=== PATIENT | male | born 1975 | race Caucasian/White ===

== ENCOUNTER 2018-02-14 09:27 | Observation (INO) ==
--- NOTE | 2018-02-14 10:28 | Emergency Department Note ---
Disposition Clinical Impression: Atypical chest pain Disposition: Admitted As Inpatient Condition: Fair Chest Pain HPI - General Chief Complaint: ED Chest Pain Stated Complaint: CP Time Seen by Provider: 02/14/18 09:29 Source: patient Mode of arrival: ambulatory Limitations: no limitations Vital Signs Reviewed: Yes Nursing Notes Reviewed: Yes - History of Present Illness HPI Narrative: Luc Chaney is a 42-yo male patient with PMHx of HTN, HLD, GERD, hiatal hernia , FHx of VT in both parents in their 60s, and no smoking other substance use history. His chief complaint is multiple episodes of shortness of breath, nausea , and profuse diaphoresis. He describes these as sudden onset and exertional, and lasting for about 10 minutes. He admits to some cough productive of yellow mucus but no blood, and denies any chest pain, tearing sensation through to his back, hemoptysis, leg pain, recent trauma or surgery, and history of blood clots or hormone use. He does complain of epigastric discomfort and bloating that he describes as typical for him, as well as upper back and left shoulder and arm discomfort/paresthesia and mild weakness that are chronic and unchanged. He has no other complaints at this time. Onset (ago): day(s) (1) Duration: intermittent Onset: during exertion Pain Location: other Severity: mild Severity scale (1-10): 1 Quality: tightness Pain Radiation: LUE Improves with: nothing Worsens with: movement Associated symptoms: Reports: nausea, diaphoresis, dyspnea, cough Treatments prior to arrival chest pain: none - Related Data On Oral Contraceptives: No Home Medications Medication Instructions Recorded Confirmed Esomeprazole Magnesium [Nexium 40 mg PO QAM 05/16/17 02/14/18 24Hr] Sertraline [Zoloft] 50 mg PO DAILY 05/16/17 02/14/18 Atorvastatin [Lipitor] 10 mg PO HS 02/14/18 02/14/18 L. Acidophilus/Pectin, [place] 1 cap PO DAILY 02/14/18 02/14/18 [Acidophilus Probiotic Capsule] Lisinopril [Zestril] 10 mg PO DAILY 02/14/18 02/14/18 Allergies Allergy/AdvReac Type Severity Reaction Status Date / Time Amoxicillin AdvReac Nausea Verified 02/14/18 10:27 Constitutional: Denies: fever, chills, weakness, night sweats Cardiovascular: Reports: dyspnea on exertion. Denies: chest pain, palpitations , orthopnea, edema, syncope Respiratory: Reports: cough, dyspnea, sputum production. Denies: wheezes, hemoptysis, stridor Gastrointestinal: Reports: nausea, other (mild epigastric discomfort). Denies: vomiting, diarrhea, constipation, hematemesis Musculoskeletal: Reports: back pain (discomfort, upper) Neurological: Reports: headache, paresthesias (left arm) Chest Pain PMH - Past Medical History Medical history: Reports: GERD, hyperlipidemia, hypertension, other (hiatal hernia) Surgical history: Reports: non-contributory Psychiatric history: Reports: anxiety - Social History Smoking Status: Never smoker Alcohol use: Reports: none Drug use: Reports: none Physical Exam On exam, patient is alert, oriented, and in no acute distress. He is mildly diaphoretic, but skin has normal color. Heart has RRR and lungs are CTAB. His upper back and shoulders have mildly increased discomfort to palpation or range of motion, but chest is nontender. Abdomen is soft and distended with mild epigastric pain to palpation. There is no swelling or tenderness in the bilateral lower extremities. No other pertinent findings. - General Limitations: no limitations General appearance: alert, in no apparent distress - Head Head exam: atraumatic, normocephalic - Eye Eye exam: Present: normal appearance - Neck Neck exam: Present: normal inspection - Chest Chest inspection: Present: normal inspection, symmetric chest wall rise. Absent : tenderness - Respiratory Respiratory exam: Present: normal lung sounds bilaterally. Absent: respiratory distress, wheezes, accessory muscle use - Cardiovascular Cardiovascular exam: Present: regular rate, normal rhythm. Absent: systolic murmur, diastolic murmur, rubs, gallop - Abdominal Exam Abdominal exam: Present: soft, tenderness, distention, normal bowel sounds. Absent: guarding, rebound, rigidity Abdominal tenderness: Present: epigastrium, mild - Back Exam Back exam: Present: normal inspection, full ROM. Absent: tenderness - Neurological Exam Neurological exam: Present: alert, oriented X3 - Psychiatric Psychiatric exam: Present: normal affect, normal mood - Skin Skin exam: Present: normal color, diaphoresis Course Course Narrative: 42 YO M here with CP that is experiencing dyspnea, diaphoresis, exertional chest pain that is constant pain that shoots to his right arm and shoulder. Concerned for ACS based on presenting symptoms. Repeated EKG showed sinus rythym , normal intervals, normal axis. Called hospitalist for workup for ACS. - Reevaluation(s) Reevaluation #1: Spoke with hospitalist and they will admit him for workup. - Consultations Consultation #1: Spoke with hospitalist and he's okay to admit him. Vital Signs Temperature 98.0 F 02/14/18 09:37 Pulse Rate 99 02/14/18 09:37 Respiratory Rate 16 02/14/18 09:37 Blood Pressure 150/86 02/14/18 09:37 O2 Sat by Pulse Oximetry 98 02/14/18 09:37 Temperature 98.1 F 02/14/18 15:34 Pulse Rate 81 02/14/18 15:34 Respiratory Rate 20 02/14/18 15:34 Blood Pressure 136/87 02/14/18 15:34 O2 Sat by Pulse Oximetry 96 02/14/18 15:34 Oxygen Delivery Oxygen Delivery Room Air Chest Pain - Lab Data Result diagrams: 02/14/18 10:09 02/14/18 10:09 Lab Results 02/14/18 02/14/18 Range/Units 10:09 10:09 WBC 4.7 (4.3-11.1) K/mcL RBC 4.83 (4.19-5.50) M/mcL Hgb 14.2 (12.9-16.9) g/dL Hct 40.6 (37.5-50.1) % MCV 84.1 (83.0-100.0) fL MCH 29.4 (28.0-33.3) pg MCHC 35.0 (31.6-35.5) g/dL RDW 13.1 (11.5-14.5) % Plt Count 199 (140-400) K/mcL MPV 9.4 (9.4-12.4) fL Immature Gran % 0.2 (0-4) % Seg Neutrophils % 64.6 % Lymphocytes % 21.2 % Monocytes % 11.3 % Eosinophils % 2.1 % Basophils % 0.6 % Neutrophils # 3.0 (1.6-8.9) K/mcL Lymphocytes # 1.0 (0.6-4.6) K/mcL Monocytes # 0.5 (0.0-1.3) K/mcL Eosinophils # 0.1 (0.0-0.6) K/mcL Basophils # 0.0 (0.0-0.2) K/mcL Sodium 136 (136-145) mEq/L Potassium 3.8 (3.5-5.1) mEq/L Chloride 102 (98-107) mEq/L Carbon Dioxide 26 (23-29) mEq/L BUN 16 (6-20) mg/dL Creatinine 0.99 (0.70-1.30) mg/dL Est GFR ( Amer) > 60 (> 60) Est GFR (Non-Af Amer) > 60 (> 60) BUN/Creatinine Ratio 16 (6-26) Glucose 103 (70-105) mg/dL Calculated Osmolality 283 (280-300) Calcium 9.8 (8.6-10.3) mg/dL Troponin I < 0.03 (< 0.04) ng/mL - EKG Data EKG shows normal: sinus rhythm, axis Rate: normal Rhythm: NSR [place]/QRS: normal Interpretation: normal EKG
[2018-02-14 10:34] LABS: Basophils % 0.6 %; Eosinophils # 0.1 K/mcL (0.0-0.6); Eosinophils % 2.1 %; Hematocrit 40.6 % (37.5-50.1); Hemoglobin 14.2 g/dL (12.9-16.9); Immature Granulocytes % 0.2 % (0-4); Lymphocytes % 21.2 %; Mean Corpuscular Hemoglobin 29.4 pg (28.0-33.3); Mean Corpuscular Volume 84.1 fL (83.0-100.0); Mean Platelet Volume 9.4 fL (9.4-12.4); Monocytes # 0.5 K/mcL (0.0-1.3); Monocytes % 11.3 %; Platelet Count 199 K/mcL (140-400); Red Blood Count 4.83 M/mcL (4.19-5.50); Red Cell Distribution Width 13.1 % (11.5-14.5); Segmented Neutrophils % 64.6 %
--- NOTE | 2018-02-14 10:48 | Emergency Department Note ---
Disposition Clinical Impression: Atypical chest pain Disposition: Admitted As Inpatient Condition: Fair General Adult HPI - General Chief complaint: ED Chest Pain Stated complaint: CP Time Seen by Provider: 02/14/18 09:29 Source: patient Mode of arrival: ambulatory Limitations: no limitations - History of Present Illness Pain Scale: 1 - Related Data Home Medications Medication Instructions Recorded Confirmed Esomeprazole Magnesium [Nexium 40 mg PO QAM 05/16/17 02/14/18 24Hr] Sertraline [Zoloft] 50 mg PO DAILY 05/16/17 02/14/18 Atorvastatin [Lipitor] 10 mg PO HS 02/14/18 02/14/18 L. Acidophilus/Pectin, [place] 1 cap PO DAILY 02/14/18 02/14/18 [Acidophilus Probiotic Capsule] Lisinopril [Zestril] 10 mg PO DAILY 02/14/18 02/14/18 Allergies Allergy/AdvReac Type Severity Reaction Status Date / Time Amoxicillin AdvReac Nausea Verified 02/14/18 10:27 Constitutional: Denies: fever, chills, weakness, night sweats Cardiovascular: Reports: dyspnea on exertion. Denies: chest pain, palpitations , orthopnea, edema, syncope Respiratory: Reports: cough, dyspnea, sputum production. Denies: wheezes, hemoptysis, stridor Gastrointestinal: Reports: nausea, other (mild epigastric discomfort). Denies: vomiting, diarrhea, constipation, hematemesis Musculoskeletal: Reports: back pain (discomfort, upper) Neurological: Reports: headache, paresthesias (left arm) Past Medical History - Past Medical History Medical history: Reports: GERD, hyperlipidemia, hypertension, other (hiatal hernia) Surgical history: Reports: non-contributory Psychiatric history: Reports: anxiety - Social History Smoking Status: Never smoker Smokeless Tobacco Status: No Alcohol use: Reports: none Drug use: Reports: none Physical Exam - General Limitations: no limitations General appearance: alert, in no apparent distress Course Vital Signs Temperature 98.0 F 02/14/18 09:37 Pulse Rate 99 02/14/18 09:37 Respiratory Rate 16 02/14/18 09:37 Blood Pressure 150/86 02/14/18 09:37 O2 Sat by Pulse Oximetry 98 02/14/18 09:37 Temperature 98.1 F 02/14/18 15:34 Pulse Rate 81 09/13/18 15:34 Respiratory Rate 20 02/14/18 15:34 Blood Pressure 136/87 02/14/18 15:34 O2 Sat by Pulse Oximetry 96 02/14/18 15:34 Oxygen Delivery Oxygen Delivery Room Air Medical Decision Making - Lab Data Result diagrams: 02/14/18 10:09 02/14/18 10:09 Lab Results 02/14/18 02/14/18 Range/Units 10:09 10:09 WBC 4.7 (4.3-11.1) K/mcL RBC 4.83 (4.19-5.50) M/mcL Hgb 14.2 (12.9-16.9) g/dL Hct 40.6 (37.5-50.1) % MCV 84.1 (83.0-100.0) fL MCH 29.4 (28.0-33.3) pg MCHC 35.0 (31.6-35.5) g/dL RDW 13.1 (11.5-14.5) % Plt Count 199 (140-400) K/mcL MPV 9.4 (9.4-12.4) fL Immature Gran % 0.2 (0-4) % Seg Neutrophils % 64.6 % Lymphocytes % 21.2 % Monocytes % 11.3 % Eosinophils % 2.1 % Basophils % 0.6 % Neutrophils # 3.0 (1.6-8.9) K/mcL Lymphocytes # 1.0 (0.6-4.6) K/mcL Monocytes # 0.5 (0.0-1.3) K/mcL Eosinophils # 0.1 (0.0-0.6) K/mcL Basophils # 0.0 (0.0-0.2) K/mcL Sodium 136 (136-145) mEq/L Potassium 3.8 (3.5-5.1) mEq/L Chloride 102 (98-107) mEq/L Carbon Dioxide 26 (23-29) mEq/L BUN 16 (6-20) mg/dL Creatinine 0.99 (0.70-1.30) mg/dL Est GFR ( Amer) > 60 (> 60) Est GFR (Non-Af Amer) > 60 (> 60) BUN/Creatinine Ratio 16 (6-26) Glucose 103 (70-105) mg/dL Calculated Osmolality 283 (280-300) Calcium 9.8 (8.6-10.3) mg/dL Troponin I < 0.03 (< 0.04) ng/mL Attestation Statement - Attestation Attestation: I examined this patient and my medical decision-making was reviewed with the FRAME CATCHER/PA/Advanced Practice Nurse/Resident Physician. I agree with the documented findings, disposition and treatment plan as described except to the extent set forth below. Presents with exertional dyspnea and diaphoresis for the last several days with discomfort in the left shoulder and left elbow. Does have chronic back pain and no change in chronic back pain. No pleuritic aspect.No pain or swelling of the lower extremities, casts or splints of the lower extremities, prolonged immobilization or lower extremity injury. No history of cancer, hemoptysis, hormone therapy, blood clotting problems or recent surgery. Patient's symptoms are concerning for acute coronary syndrome. Initial EKG showed a sinus rhythm with a rate of 100 without acute ischemic change and a second EKG when the patient was diaphoretic in the room also shows regular rate and rhythm with a rate of 82 without acute ischemic changes. We are awaiting troponin. Chest x-rays negative. The patient is bright and alert. He is here with his and daughter. Symptoms very concerning for acute coronary syndrome 3881
[2018-02-14 10:49] LABS: Troponin I < 0.03 ng/mL (< 0.04)
[2018-02-14 10:54] LABS: BUN/Creatinine Ratio 16 (6-26); Blood Urea Nitrogen 16 mg/dL (6-20); Calcium 9.8 mg/dL (8.6-10.3); Carbon Dioxide 26 mEq/L (23-29); Chloride 102 mEq/L (98-107); Glucose 103 mg/dL (70-105); Osmolality,Calculated 283 (280-300); Potassium 3.8 mEq/L (3.5-5.1); Sodium 136 mEq/L (136-145); eGFR For Non-African Americans > 60 (> 60)
[2018-02-14] MEDS ORDERED: Naloxone 0.4 MG/ML INJ IVP PRN (13:11)
[2018-02-14] MEDS ORDERED: Isovue-370 500 ML INFUS..BTL IV ONE (13:13)
--- NOTE | 2018-02-14 13:17 | Internal Med History&Physical ---
Date of Encounter: 02/14/18 Time of Encounter: 13:15 Internal Medicine - H&P: HPI Chief complaint: Shoulder pain and diaphoresis and chest discomfort Admitted From: Emergency Dept Plans for Post Hospital Care: Home History of present illness: Mr. Chaney is a 42 year old male with a past medical history of hypertension and hyperlipidemia who presents with dyspnea on exertion as well as diaphoresis associated with chest discomfort. The patient states that [place] and suddenly noticed he became very diaphoretic with chest discomfort that radiated in between her shoulder blades graded as 6/10 in severity. The patient does have chronic reflux as well as hiatal hernia. He did not feel that this pain was similar to his gastroesophageal reflux pain and decided to come to the hospital. In the ER he had a EKG which showed sinus rhythm and low voltage in precordial leads. His initial set of troponin was negative but the symptomatology was very concerning for acute coronary syndrome and he has been placed in observation for the same. He also did check his blood pressure at the time and he was in the 170s systolic The patient does have history of chronic back pain and sees a chiropractor. He does not smoke or drink but does have a family history which is positive for acute coronary syndrome and MIs in her father and mother in the 60s. Past Med Surg Social Fam HX - Past Medical History Medical history: GERD, hyperlipidemia, hypertension, other Psychiatric history: anxiety - Past Surgical History Surgical History: non-contributory - Social History Smoking Status: Never smoker Smokeless Tobacco Status: No Alcohol use: none Drug use: none - Additional Family History Additional family history: Positive for acute coronary syndrome in mother and father in their 60s Internal Medicine - H&P: Meds Esomeprazole Magnesium [Nexium 24Hr] 40 mg PO QAM 05/16/17 [History] Sertraline [Zoloft] 50 mg PO DAILY 05/16/17 [History] Atorvastatin [Lipitor] 10 mg PO HS 02/14/18 [History] L. Acidophilus/Pectin, [address] [Acidophilus Probiotic Capsule] 1 cap PO DAILY [History] Lisinopril [Zestril] 10 mg PO DAILY 02/14/18 [History] 3 Allergy/AdvReac Type Severity Reaction Status Date / Time Amoxicillin AdvReac Nausea Verified 02/14/18 10:27 All Systems PM: A 10-system review of systems was performed and is negative for pertinent findings except as documented above in the HPI. - Constitutional Vitals: Temp Pulse Resp BP Pulse Ox 98.2 F 78 20 134/82 98 02/14/18 12:49 02/14/18 12:49 02/14/18 12:49 02/14/18 12:49 02/14/18 12:49 Exam: GENERAL: Alert, no distress, cooperative, morbidly obese EYES: PERRLA, EOMI EARS: External ears normal, canals clear OROPHARYNX: Lips, mucosa, and tongue normal. Teeth and gums normal. Oropharynx normal. NECK: No jugulovenous distention, No carotid bruits, Carotid pulse normal contour, Supple LUNGS: Lungs clear to auscultation, Good diaphragmatic excursion CARDIAC: Normal S1 and S2; no rubs, murmurs, or gallops ABDOMEN: Abdomen soft, non-tender, BS normal, No masses or organomegaly EXTREMITIES: Extremities normal, no deformities, edema, clubbing or skin discoloration. Good capillary refill., No ulcers NEURO: Gait normal. Reflexes normal and symmetric. Sensation grossly intact, Cranial nerves II-XII intact PULSES: 2+ radial, 2+ carotid Rest of the exam is non contributory Internal Med - H&P Results - Labs CBC & Chem 7: 02/14/18 10:09 02/14/18 10:09 - EKG Data Prior EKG available for review: yes Interpretation IM: normal EKG (Initial EKG showed sinus tachycardia but second EKG shows tachycardia improving, no ST elevation or depression) - Assessment and plan (1) Chest pain Current Visit: Yes Status: Acute Assessment and plan: Rule out acute coronary syndrome. Place the patient on telemetry monitoring and check serial cardiac enzymes. The patient's description of pain is radiating in between the shoulder blades and I would need to rule out aortic dissection with CT angiogram. He also has some component of pleuritic chest pain and CT angiogram would help rule out a pulmonary embolism as well. Other than that I have verified with the patient that he has good metastases as far as exercise tolerance is concerned and I do not think we need to do a full- blown stress test or echocardiogram at this point. We will follow closely with these monitoring mechanisms. Qualifiers: Chest pain type: chest pain on breathing Qualified Code(s): R07.1 - Chest pain on breathing; R07.81 - Pleurodynia (2) Hypertension, essential Current Visit: Yes Status: Acute Assessment and plan: Continue blood pressure medications. Monitor closely currently blood pressure is stable (3) Morbid obesity Current Visit: Yes Status: Acute Assessment and plan: Education provided regarding excessive calorie intake - Time Spent With Patient Total time spent is greater than 50% in coordination of care (as documented) at patient's floor/unit and/or counseling patient: 25 - 35 minutes
[2018-02-14] MEDS ORDERED: Nitroglycerin 0.4 MG TAB.SUBL SL PRN (13:22)
--- NOTE | 2018-02-14 14:34 | Emergency Department Note ---
Disposition Clinical Impression: Atypical chest pain Disposition: Still a Patient Condition: Fair General Adult HPI - General Chief complaint: ED Chest Pain Stated complaint: CP Time Seen by Provider: 02/14/18 09:29 Source: patient Mode of arrival: ambulatory Limitations: no limitations - History of Present Illness HPI Narrative: 42 YO M with SOB with history of HTN, ERD, hiatal hernia, and hyperlipidemia. He states this morning he began have SOB, nausea, and diaphoresis. Reports exertional SOB. He denies chest pain or history of arrhythmia. He does however have left shoulder pain, back pain, and epigastric discomfort from bloating that he has had chronically. Denies leg pain or swelling, hemopytsis, recent trauma, history of blood clots. Pain Scale: 1 - Related Data Home Medications Medication Instructions Recorded Confirmed Esomeprazole Magnesium [Nexium 40 mg PO QAM 05/16/17 02/14/18 24Hr] Sertraline [Zoloft] 50 mg PO DAILY 05/16/17 02/14/18 Atorvastatin [Lipitor] 10 mg PO HS 02/14/18 02/14/18 L. Acidophilus/Pectin, [place] 1 cap PO DAILY 02/14/18 02/14/18 [Acidophilus Probiotic Capsule] Lisinopril [Zestril] 10 mg PO DAILY 02/14/18 02/14/18 Allergies Allergy/AdvReac Type Severity Reaction Status Date / Time Amoxicillin AdvReac Nausea Verified 02/14/18 10:27 Constitutional: Denies: fever, chills, weakness, night sweats Cardiovascular: Reports: dyspnea on exertion. Denies: chest pain, palpitations , orthopnea, edema, syncope Respiratory: Reports: cough, dyspnea, sputum production. Denies: wheezes, hemoptysis, stridor Gastrointestinal: Reports: nausea, other (mild epigastric discomfort). Denies: vomiting, diarrhea, constipation, hematemesis Genitourinary: Denies: urgency, dysuria, frequency Musculoskeletal: Reports: back pain (discomfort, upper) Neurological: Reports: headache, paresthesias (left arm) Psychiatric: Denies: anxiety, depression Past Medical History - Past Medical History Medical history: Reports: GERD, hyperlipidemia, hypertension, other (hiatal hernia) Surgical history: Reports: non-contributory Psychiatric history: Reports: anxiety - Social History Smoking Status: Never smoker Smokeless Tobacco Status: No Alcohol use: Reports: none Drug use: Reports: none Physical Exam - General Limitations: no limitations General appearance: alert, in no apparent distress - Head Head exam: atraumatic, normocephalic - Chest Chest inspection: Present: normal inspection, symmetric chest wall rise - Respiratory Respiratory exam: Present: normal lung sounds bilaterally. Absent: respiratory distress, wheezes, stridor - Cardiovascular Cardiovascular exam: Present: regular rate, normal rhythm, normal heart sounds - Abdominal Exam Abdominal exam: Present: soft, Non-Tender. Absent: guarding, rebound - Neurological Exam Neurological exam: Present: alert, oriented X3 - Psychiatric Psychiatric exam: Present: normal affect, normal mood Course Course Narrative: 42 YO M with CP that radiates to the left shoulder, diaphoresis, SOB, neg EKG x2 , normal troponins. Concern for ACS based on symptoms. Called hospitalist and they are okay to work up for ACS. Vital Signs Temperature 98.0 F 02/14/18 09:37 Pulse Rate 99 02/14/18 09:37 Respiratory Rate 16 02/14/18 09:37 Blood Pressure 150/86 02/14/18 09:37 O2 Sat by Pulse Oximetry 98 02/14/18 09:37 Temperature 98.2 F 02/14/18 12:49 Pulse Rate 78 02/14/18 12:49 Respiratory Rate 20 02/14/18 12:49 Blood Pressure 134/82 02/14/18 12:49 O2 Sat by Pulse Oximetry 98 02/14/18 12:49 Oxygen Delivery Oxygen Delivery Room Air Medical Decision Making - Lab Data Result diagrams: 02/14/18 10:09 02/14/18 10:09 Lab Results 02/14/18 02/14/18 Range/Units 10:09 10:09 WBC 4.7 (4.3-11.1) K/mcL RBC 4.83 (4.19-5.50) M/mcL Hgb 14.2 (12.9-16.9) g/dL Hct 40.6 (37.5-50.1) % MCV 84.1 (83.0-100.0) fL MCH 29.4 (28.0-33.3) pg MCHC 35.0 (31.6-35.5) g/dL RDW 13.1 (11.5-14.5) % Plt Count 199 (140-400) K/mcL MPV 9.4 (9.4-12.4) fL Immature Gran % 0.2 (0-4) % Seg Neutrophils % 64.6 % Lymphocytes % 21.2 % Monocytes % 11.3 % Eosinophils % 2.1 % Basophils % 0.6 % Neutrophils # 3.0 (1.6-8.9) K/mcL Lymphocytes # 1.0 (0.6-4.6) K/mcL Monocytes # 0.5 (0.0-1.3) K/mcL Eosinophils # 0.1 (0.0-0.6) K/mcL Basophils # 0.0 (0.0-0.2) K/mcL Sodium 136 (136-145) mEq/L Potassium 3.8 (3.5-5.1) mEq/L Chloride 102 (98-107) mEq/L Carbon Dioxide 26 (23-29) mEq/L BUN 16 (6-20) mg/dL Creatinine 0.99 (0.70-1.30) mg/dL Est GFR ( Amer) > 60 (> 60) Est GFR (Non-Af Amer) > 60 (> 60) BUN/Creatinine Ratio 16 (6-26) Glucose 103 (70-105) mg/dL Calculated Osmolality 283 (280-300) Calcium 9.8 (8.6-10.3) mg/dL Troponin I < 0.03 (< 0.04) ng/mL - EKG Data EKG #1 EKG shows normal: axis, intervals, QRS complexes, ST-T waves Rate: tachycardia Rhythm: NSR [place]/QRS: normal Interpretation: normal EKG
--- NOTE | 2018-02-14 15:09 | Electrocardiograph Report ---
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
[2018-02-14] MEDS: *HR* Heparin 5,000 UNIT/ML VIAL SQ SCH ×2 (15:26→21:11)
--- NOTE | 2018-02-14 15:36 | Electrocardiograph Report ---
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
[2018-02-14] MEDS ORDERED: Ibuprofen 600 MG TABLET PO PRN (21:24)
[2018-02-15] MEDS: *HR* Heparin 5,000 UNIT/ML VIAL SQ SCH (05:34)
[2018-02-15 08:11] VITALS: BP 136/83
[2018-02-15] MEDS ORDERED: Lactobacillus 1 EACH CAP.SPRINK PO SCH (09:00)
[2018-02-15] MEDS ORDERED: Aspirin Enteric Coated 81 MG Tablet PO SCH (09:00)
--- NOTE | 2018-02-15 10:16 | Discharge Summary ---
Date of Encounter: 02/15/18 Time of Encounter: 09:00 - Discharge Diagnosis (1) Chest pain Priority: Primary Status: Acute Qualifiers: Chest pain type: chest pain on breathing Qualified Code(s): R07.1 - Chest pain on breathing; R07.81 - Pleurodynia (2) Hypertension, essential Priority: Secondary Status: Acute (3) Morbid obesity Priority: Secondary Status: Acute Hospital course: Mr. Chaney is a 42 year old male presented to emergency room for left shoulder pain and diaphoresis, admitted to rule out ACS. Patient was placed on continuous cardiac monitoring, 3 sets of troponin was checked. 3 sets of troponin negative, no arrhythmia notified on monitoring. Patient denies chest pain or chest discomfort. He said he has left shoulder pain for about 1 week. The ROM of left shoulder is WNL. Patient has no further diaphoresis. Patient has chronic intermittent back pain, CTA has been done, negative for PE or dissection. I have seen and examined the patient today. Patient denies chest pain, Shortness of Breath, Diaphoresis. Patient Has a Chronic Nausea and Was Treated As Outpatient As IBS. Patient complaint inflammation of thumb with tenderness, will prescribe Bactrim DS po for 5 days. Patient will discuss with PCP as outpatient regarding further cardiac workup such as stress test. Discharge discussed with: patient - Time Spent with Patient Total time spent providing and/or coordinating discharge services: 25 minutes Less than 30 minutes - Discharge Medications Home Medications: Esomeprazole Magnesium [Nexium 24Hr] 40 mg PO QAM 05/16/17 [History] Sertraline [Zoloft] 50 mg PO DAILY 05/16/17 [History] Atorvastatin [Lipitor] 10 mg PO HS 02/14/18 [History] L. Acidophilus/Pectin, [place] [Acidophilus Probiotic Capsule] 1 cap PO DAILY [History] Lisinopril [Zestril] 10 mg PO DAILY 02/14/18 [History] Sulfamethoxazole/Trimeth DS [Bactrim DS] 1 each PO BID #10 tablet 02/15/18 [Rx] Allergies/Adverse Reactions: 3 Allergy/AdvReac Type Severity Reaction Status Date / Time Amoxicillin AdvReac Nausea Verified 02/14/18 10:27 Date of admission: 02/14/18 11:37 Primary care physician: Spenser Torres DO Discharging clinician: Diogo Valle Anticipated date of discharge: 02/15/18 - Constitutional Vitals: Temp Pulse Resp BP Pulse Ox 98.1 F 88 16 136/83 96 02/15/18 08:10 02/15/18 08:10 02/15/18 08:10 02/15/18 08:10 02/15/18 08:20 General appearance: Present: A&O X 3, no acute distress, answers questions appropriately Exam: In NAD - Head Head exam: Present: atraumatic, normocephalic - Eye Eye exam: Present: PERRL, conjuntiva pink, sclera anicteric Pupils: Present: PERRL - Neck Neck exam general surgery: Present: supple, trachea midline. Absent: lymphadenopathy - Respiratory Respiratory exam: Present: CTAB. Absent: accessory muscle use, rales, rhonchi, wheezes - Cardiovascular Cardiovascular exam: Present: RRR, +S1, +S2. Absent: diastolic murmur, gallop, rubs, systolic murmur - GI/Abdominal GI/Abdominal exam: Present: normal bowel sounds, soft, no peritoneal signs. Absent: distended, tenderness - Extremities Exam Extremities exam: Present: warm, radial pulses palpable and symmetrical. Absent : calf tenderness, cyanotic, pedal edema - Neurological Exam Neurological exam: Present: CN II-XII intact, oriented X3, no focal deficits. Absent: pronater drift, facial droop, speech deficit - Skin Skin exam: Present: dry, intact - Patient Status Disposition: Home, Self-Care Condition: Good Functional capacity at discharge: independent ambulation Overall status at discharge: patient is back to baseline - Discharge Instructions Follow Up With: Spenser Torres DO [Primary Care Provider] - - Diet and Activity Activity: increase activity as tolerated Diet: advance to your usual diet
[2018-02-15] MEDS ORDERED: Ondansetron ODT 4 MG TAB.RAPDIS SL ONE (10:28)
== END 2018-02-15 11:20 | disposition home or self-care (01) ==
LOC: 3BNU 09:27 → EMEROOARM 09:27 → 3BNU 12:46
PROVIDERS: ADMIT Student in an Organized Health Care Education/Training Program; ATTEND Student in an Organized Health Care Education/Training Program